=== PATIENT | male | born 1990 ===

== ENCOUNTER 2023-08-21 12:00 | Emergency (ER) | payer SELFPAY ==
[2023-08-21] MEDS ORDERED: Bupivacaine 0.25%/EPINEPHrine 1:200,000 10 ML SDV INFILT ONE (12:42)
[2023-08-21] MEDS ORDERED: Bupivacaine 0.5%/EPINEPHrine 1:200,000 30 ML SDV ONE (12:42)
== END 2023-08-21 13:23 | disposition home or self-care (01) ==
LOC: MW.ED 12:00 → MERGE 12:00 → MW.ED 13:23
DX: K08.89 Other specified disorders of teeth and supporting structures (principal); F17.210 Nicotine dependence, cigarettes, uncomplicated; Z88.0 Allergy status to penicillin
CPT/HCPCS: 64400; 99282-25; 99283

== ENCOUNTER 2025-01-15 12:10 | Emergency (ER) | payer SELFPAY | END 2025-01-15 14:17 | disposition home or self-care (01) | LOC: MW.ED 12:10 | DX: J39.9 Disease of upper respiratory tract, unspecified (principal); Z75.8 Other problems related to medical facilities and other health care; Z88.0 Allergy status to penicillin; Z79.899 Other long term (current) drug therapy | CPT/HCPCS: 87428-QW; 87651-QW; 99283 ==